=== PATIENT | female | born 1955 | race Caucasian/White ===

== ENCOUNTER 2016-10-21 07:15 | Day surgery (SDC) | payer SELFPAY ==
[2016-10-21] MEDS ORDERED: Lactated Ringers 1,000 ML IV SCH (08:00)
[2016-10-21] MEDS ORDERED: Propofol 200 MG/20 ML SDV ONE (09:40)
[2016-10-21] MEDS ORDERED: fentaNYL 100 MCG/2 ML SDV ONE (09:40)
[2016-10-21] MEDS ORDERED: Midazolam 1 MG/ML 2 ML SDV ONE (09:41)
[2016-10-21 11:15] VITALS: BP 130/69
--- NOTE | 2016-10-24 07:29 | OR ---
DATE OF PROCEDURE: 10/21/2016 PREOPERATIVE DIAGNOSIS: History of Kelley's esophagus. POSTOPERATIVE DIAGNOSES: History of Kelley's esophagus and small antral ulcer. PROCEDURE: Esophagogastroduodenoscopy with antral biopsies for CLOtest and for Pathology to look for Helicobacter pylori and biopsy of gastroesophageal junction. ANESTHESIA: IV anesthesia with monitored anesthesia care. INDICATION: This 61-year-old white female is referred for upper endoscopy because of history of Kelley's esophagus. She reports that she is taking no anti-acid medication and really does not complain of heartburn. I counseled her for upper endoscopy with possible biopsy including risks and alternatives and she gave her informed consent to proceed. PROCEDURE IN DETAILS: The patient was placed in the left lateral decubitus position. IV anesthesia was administered by the Anesthesia Service. Time-out was held. The flexible video Olympus upper endoscope was passed through her mouth, down her esophagus, and into her stomach. The scope was easily passed through the pylorus into the duodenum reaching its third portion. The scope was then slowly withdrawn examining the mucosa throughout. The duodenal mucosa appeared unremarkable. The scope was brought up through the pylorus into the antrum. In the antrum we saw a small ulcer and some inflammation. We obtained antral biopsies for CLOtest and sent for Pathology to look for Helicobacter pylori. The scope was retroflexed, the proximal stomach appeared unremarkable. The scope was straightened and brought up to the GE junction. The Z-line was not straight, but the changes were not very impressive. We did obtain multiple, about eight, biopsies of the gastroesophageal junction. The scope was then brought proximally through the remainder of the esophagus, which otherwise appeared unremarkable and it was removed. She tolerated the procedure well. Yoni Loco MD /[id number] SHANICE
== END 2016-10-21 11:20 | disposition home or self-care (01) ==
LOC: JP.SDS 07:15
PROVIDERS: ATTEND Surgery
DX: K31.89 Other diseases of stomach and duodenum (principal); K22.70 Barrett's esophagus without dysplasia; J45.909 Unspecified asthma, uncomplicated; Z88.5 Allergy status to narcotic agent; Z88.1 Allergy status to other antibiotic agents; Z88.8 Allergy status to other drugs, medicaments and biological substances; Z91.040 Latex allergy status; Z91.018 Allergy to other foods
CPT/HCPCS: 43239; 87081; J2250; J2704; J3010; J7120; 88305

== ENCOUNTER 2018-12-17 11:59 | Emergency (ER) | payer OTHER ==
[2018-12-17 12:19] VITALS: BP 189/86; PULSE 76
--- NOTE | 2018-12-17 12:43 | EDM.PDOC ---
ED HPI GENERAL MEDICAL PROBLEM - General Chief Complaint: Neuro Symptoms/Deficits Stated Complaint: SHORT TERM MEMORY LOST Time Seen by Provider: 12/17/18 12:30 Source of Information: Reports: Patient, Family History Limitations: Reports: Physical Impairment (Significant memory loss) - History of Present Illness INITIAL COMMENTS - FREE TEXT/NARRATIVE: 63-year-old female who was "normal" at 7 AM, her went out to check on something at their kennel, and when he came back she had very significant global amnesia of recent events. She even doesn't remember a recent grandchild that was born or a stroke suffered by her daughter. Her is almost inconsolable with worry. No trauma, no recent illness. The patient herself seems nonchalant about her symptoms, she has no physical deficits or complaints. Onset: Sudden Duration: Hour(s): (Symptoms have been present for a couple of hours) Associated Symptoms: Reports: No Other Symptoms - Related Data Allergies Allergy/AdvReac Type Severity Reaction Status Date / Time aspirin Allergy Shortness Verified 10/21/16 07:34 of Breath ibuprofen [From Motrin] Allergy Shortness Verified 10/21/16 07:34 of Breath latex Allergy Wheezing Verified 10/21/16 07:34 levofloxacin [From Levaquin] Allergy Hives Verified 10/21/16 07:34 naproxen Allergy Shortness Verified 10/21/16 07:34 of Breath kiwi Allergy Wheezing Uncoded 10/21/16 07:34 Home Meds: Home Meds Albuterol Sulfate [Proair Hfa] 1 puff IH ASDIRECTED PRN 04/11/14 [History] Albuterol [Proventil] 2.5 mg INH QIDRT PRN 04/11/14 [History] Cholecalciferol (Vitamin D3) [Vitamin D3] 10,000 unit PO ASDIRECTED 04/11/14 [ History] Fluticasone/Salmeterol [Advair Diskus 250-50] 1 puff IH DAILY 08/31/15 [History] Triamcinolone Acetonide [Triamcinolone Acetonide 0.025%] 1 applic TOP ASDIRECTED 08/31/15 [History] Alendronate [Fosamax] 70 mg PO .WEEKLY 10/20/16 [History] Cetirizine [ZyrTEC] 10 mg PO DAILY 10/21/16 [History] Omeprazole 20 mg PO DAILY 12/17/18 [History] predniSONE [Prednisone] 20 mg PO DAILY 12/17/18 [History] Past Medical History HEENT History: Reports: Impaired Vision, Sinusitis Other HEENT History: wears contacts Cardiovascular History: Reports: SOB on Exertion Respiratory History: Reports: Asthma Gastrointestinal History: Reports: Cholelithiasis Genitourinary History: Reports: None GENERAL FOREMAN History: Reports: Dysfunctional Uterine Bleeding, Musculoskeletal History: Reports: Fibromyalgia, RA Endocrine/Metabolic History: Reports: Obesity/BMI 30+, Vitamin D Deficiency Hematologic History: Reports: Blood Transfusion(s) Oncologic (Cancer) History: Reports: Cervix Dermatologic History: Reports: Psoriasis - Infectious Disease History Infectious Disease History: Reports: Chicken Pox, Measles, Mumps - Past Surgical History HEENT Surgical History: Reports: Naso-Sinus Surgery GI Surgical History: Reports: Appendectomy, Cholecystectomy, Colonoscopy, EGD Female Surgical History: Reports: Hysterectomy, Salpingo-Oophorectomy Musculoskeletal Surgical History: Reports: Arthroscopic Knee Social & Family History - Family History Family Medical History: Noncontributory Cardiac: Reports: [facility] Neurological: Reports: Parkinson's Endocrine/Metabolic: Reports: IDDM - Tobacco Use Smoking Status *Q: Never Smoker - Caffeine Use Caffeine Use: Reports: Coffee - Recreational Drug Use Recreational Drug Use: No ED ROS GENERAL - Review of Systems Review Of Systems: See Below Constitutional: Denies: Fever, Chills, Malaise HEENT: Denies: Rhinitis Respiratory: Reports: Other (Asthma is well-controlled). Denies: Shortness of Breath, Cough Cardiovascular: Denies: Chest Pain Musculoskeletal: Reports: Other (She does have chronic osteoarthritis with occasional flareups) Skin: Reports: Other (She has some significant psoriasis plaques) Neurological: Reports: Confusion. Denies: Headache, Difficulty Walking, Weakness, Change in Speech, Gait Disturbance Psychiatric: Reports: No Symptoms ED EXAM, NEURO - Physical Exam Exam: See Below Exam Limited By: No Limitations General Appearance: Alert, No Apparent Distress Eye Exam: Bilateral Eye: Normal Inspection Head Exam: Atraumatic Neck: Normal Inspection Respiratory/Chest: No Respiratory Distress Cardiovascular: Regular Rate, Rhythm Neurological: Alert, Normal Mood/Affect, No Motor/Sensory Deficits, Other ( Romberg is negative, no pronator drift). No: Oriented x 3 (Initially disoriented to time) Psychiatric: Normal Affect, Normal Mood Skin Exam: Warm, Dry, Other (She does have fairly large erythematous macular plaques on the elbows typical of psoriasis) Course - Vital Signs Last Recorded V/S: Last Vital Signs Temp 97.3 F 12/17/18 14:21 Pulse 76 12/17/18 14:21 Resp 16 12/17/18 14:21 BP 189/86 H 12/17/18 14:21 Pulse Ox 96 12/17/18 14:21 - Orders/Labs/Meds Labs: Laboratory Tests 12/17/18 12/17/18 Range/Units 13:49 13:49 WBC 11.3 H (4.5-11.0) K/uL RBC 4.99 (3.30-5.50) M/uL Hgb 13.7 D (12.0-15.0) g/dL Hct 44.1 (36.0-48.0) % MCV 88 (80-98) fL MCH 28 (27-31) pg MCHC 31 L (32-36) % Plt Count 360 (150-400) K/uL Neut % (Auto) 62 (36-66) % Lymph % (Auto) 29 (24-44) % Swain % (Auto) 9 H (2-6) % Eos % (Auto) 0 L (2-4) % Baso % (Auto) 0 (0-1) % Sodium 143 (140-148) mmol/L Potassium 4.2 (3.6-5.2) mmol/L Chloride 106 (100-108) mmol/L Carbon Dioxide 30 (21-32) mmol/L Anion Gap 6.9 (5.0-14.0) mmol/L BUN 21 H D (7-18) mg/dL Creatinine 1.1 H D (0.6-1.0) mg/dL Est Cr Clr Drug Dosing 46.38 mL/min Estimated GFR (MDRD) 50 L (>60) Glucose 86 (74-106) mg/dL Calcium 9.6 (8.5-10.1) mg/dL Total Bilirubin 0.3 (0.2-1.0) mg/dL AST 15 (15-37) U/L ALT 26 (12-78) U/L Alkaline Phosphatase 97 (46-116) U/L Total Protein 7.8 (6.4-8.2) g/dL Albumin 3.8 (3.4-5.0) g/dL Globulin 4.0 H (2.3-3.5) g/dL Albumin/Globulin Ratio 1.0 L (1.2-2.2) TSH, Ultra Sensitive 1.030 (0.358-3.740) uIU/mL - Re-Assessments/Exams Free Text/Narrative Re-Assessment/Exam: 12/17/18 14:12 There was an opening in the MRI, so the patient was sent to MRI of the brain. This was normal. CBC CMP and TSH were obtained. She started to improve while waiting for lab results, very typical of transient global amnesia. 12/17/18 15:05 Remaining labs were also reassuring including a normal TSH. No further assessment at this time. Patient continued to improve. Departure - Departure Time of Disposition: 14:23 Disposition: Home, Self-Care 01 Condition: Good Clinical Impression: Transient global amnesia - Discharge Information Instructions: Transient Global Amnesia Referrals: PCP,None [Primary Care Provider] - Forms: ED Department Discharge Care Plan Goals: Continue your current medications, activity as tolerated, and consider rechecking in 2-3 days if not improving satisfactorily.
--- NOTE | 2018-12-17 13:28 | MR ---
Brain wo Cont CLINICAL HISTORY: Amnesia COMPARISON: None TECHNIQUE: Multiple axial, sagittal, and coronal images were obtained on a 1.5 T magnet with multiweighted sequences, FLAIR, and diffusion imaging without contrast. FINDINGS: There is no focal mass lesion. There is no hemmorhage or extraaxial collection. There is no restricted diffusion.. The basal cisterns and sulci over the convexities are normal. The ventricles are normal for age. There is fluid signal in the left mastoid air cells. There is some minimal mucosal thickening in both maxillary sinuses. There is soft tissue prominence in the mid the right nasal passage. Nasal polyp is not excluded. IMPRESSION: No focal intracranial lesion mass effect or hemorrhage Fluid in the left mastoid air cells Mild chronic maxillary sinusitis Prominent nasal mucosa suggesting rhinitis. There appears to be a right nasal polyp
== END 2018-12-17 14:23 | disposition home or self-care (01) ==
LOC: JP.ED 11:59
DX: G45.4 Transient global amnesia (principal); J45.909 Unspecified asthma, uncomplicated; Z88.6 Allergy status to analgesic agent; Z91.040 Latex allergy status; Z88.1 Allergy status to other antibiotic agents; Z91.018 Allergy to other foods; Z79.899 Other long term (current) drug therapy
CPT/HCPCS: 36415; 70551; 70551-26; 80053; 84443; 85025; 99284-25

== ENCOUNTER 2021-08-31 05:41 | Day surgery (SDC) | payer OTHER ==
[2021-08-31] MEDS ORDERED: Dextrose 5%-Lactated Ringers 1,000 ML IV SCH (06:00)
[2021-08-31 06:40] LABS: CORONAVIRUS COVID-19 NAA NEGATIVE (NEGATIVE)
[2021-08-31] MEDS ORDERED: Propofol 200 MG/20 ML SDV ONE (07:30)
[2021-08-31] MEDS ORDERED: fentaNYL 100 MCG/2 ML SDV ONE (07:30)
[2021-08-31 10:33] VITALS: BP 138/66; PULSE 75
== END 2021-08-31 10:42 | disposition home or self-care (01) ==
LOC: JP.SDS 05:41
PROVIDERS: ATTEND Surgery
DX: K29.60 Other gastritis without bleeding (principal); K44.9 Diaphragmatic hernia without obstruction or gangrene; K22.70 Barrett's esophagus without dysplasia; Z01.812 Encounter for preprocedural laboratory examination; Z20.822 Contact with and (suspected) exposure to COVID-19
CPT/HCPCS: 0241U; 87081; J2704; J3010; J7121